=== PATIENT | female | born 2000 | race Caucasian/White ===

== ENCOUNTER 2019-03-15 14:05 | Outpatient (CLI) | payer OTHER | END 2019-03-15 15:35 | disposition left against medical advice (07) | LOC: OBT 14:05 → L-D 14:07 → OBT 15:35 | PROVIDERS: ATTEND Obstetrics & Gynecology | DX: Z53.21 Procedure and treatment not carried out due to patient leaving prior to being seen by health care provider (principal) | CPT/HCPCS: G0463 ==